=== PATIENT | female | born 1980 | race Caucasian/White ===

== ENCOUNTER 2019-01-24 05:20 | Day surgery (SDC) | payer OTHER ==
[~2019-01-24] VITALS: Ht 154.9 cm; Wt 49.9 kg
[~2019-01-24 05:20] MED LIST: WELLBUTRIN SR150 MG PO; ZOLOFT100 MG PO
[2019-01-24 07:04] VITALS: BP 136/81
[2019-01-24 10:20] VITALS: BP 136/81
--- NOTE | 2019-01-24 14:07 | O ---
[address] [address] OPERATIVE REPORT Name: NICKO JOHNSON Room #: 150-2 [facility]#: [id number] Admission: 01/24/19 Attend Phys: Jw Nix MD Discharge: Date of : 84 Report #: [id number] THIS REPORT FOR: //name// CC: JONY Nix Physician staff DATE OF SERVICE: 01/24/2019 SERVICE: Orthopedics. FACILITY: [facility]. SURGEON: Jw Nix M.D. WELDER HELPER: Ale Alvarez NP. INDICATION FOR WELDER HELPER: Extremity positioning, suture, and arthroscope management and assistance with repair. PREOPERATIVE DIAGNOSES: 1. Right hip pain. 2. Right hip femoroacetabular impingement. 3. Right hip labral tear. POSTOPERATIVE DIAGNOSES: 1. Right hip pain. 2. Right hip femoroacetabular impingement. 3. Right hip labral tear. PROCEDURES: 1. Right hip arthroscopic labral repair. 2. Right hip arthroscopic Cam osteochondroplasty. 3. Right hip arthroscopic extraarticular subspine acetabuloplasty. COMPLICATIONS: None. DRAINS: None. SPECIMENS: None. ANESTHESIA: General with regional. FINDINGS: 1. Full thickness labral tear anteriorly, treated with [place] CinchLock suture anchor x 2. [address] [address] OPERATIVE REPORT Name: NICKO JOHNSON Room #: 150-2 [facility]#: [id number] Admission: 01/24/19 Attend Phys: Jw Nix MD Discharge: Date of : 84 Report #: [id number] 2. 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 HISTORY: The patient is a 38-year-old female with a history of persistent progressive right hip pain that have failed conservative measures for well over 6 months including rest, activity modification, physical therapy, oral medications and intraarticular injection. She had x-rays, which demonstrated an increased alpha angle, which was confirmed to be approximately 68 degrees at the maximum consistent with Cam impingement. Tonnis grade was 0 indicating no arthritis. She has a small crossover sign, which was attributable to a prominent anterior inferior iliac spine causing the crossover lesion, and therefore, the extraarticular hip impingement. The MRI showed a labral tear. Risks, benefits, alternatives, and indication of surgery discussed with her in detail after she failed conservative measures. Risks include but not limited to pain, bleeding, infection, injury to nerves or blood vessels, persistent pain despite surgical intervention, failure of any repairs, progression of any preexisting chondral injury, stiffness, need for further surgery as well as complications related to anesthesia such as stroke, heart attack, pulmonary complications, thromboembolic disease and . Despite these risks, she wished to proceed. PROCEDURE IN DETAIL: After right lower extremity was correctly identified in the preoperative holding area as the operative extremity, the patient was taken to the operating room where general anesthesia was induced. She underwent placement of single shot regional nerve block. She was padded appropriately. Prophylactic antibiotics were administered at appropriate time. Right hip was assessed under fluoroscopy to map out the femoral head neck junction where the extent of the Cam deformity was visualized. This extended from the 15 degree position to about the 60 degree position on the femoral neck and had a maximal alpha angle of 68 degrees. Right hip was then prepped and draped in standard sterile fashion. Timeout procedure was performed. Traction was applied to right lower extremity. Total traction time was 33 minutes. Standard anterolateral viewing portal was established followed by mid anterior working portal. Medially, there was noted to be synovitis and erythema within the capsule. This is a risk factor for postoperative adhesions, so it will be our indication for continuous passive motion machine postoperatively. Transverse capsulotomy was performed. The capsule was reflected off the dorsal side of the labrum allowing access to the dorsal aspect of the labrum and the acetabular side of the hip. There was a full thickness labral tear at the 12 o'clock position with some granulation tissue which demonstrates an attempt at healing. The subspine region was then exposed and a bur was used to perform a subspine recession to address the extraarticular portion of her hip impingement. After this was completed, [place] CinchLock suture anchors were placed x 2 with cerclage sutures providing good compression of the labrum against the acetabular [address] [address] OPERATIVE REPORT Name: NICKO JOHNSON Room #: 150-2 [facility]#: [id number] Admission: 01/24/19 Attend Phys: Jw Nix MD Discharge: Date of : 84 Report #: [id number] rim and then the labrum was probed and found to be stable. Shaver was then used to debride the frayed tissue at the chondral labral junction. Overall, the cartilage was healthy, but there was a thin strip of articular cartilage right at the area where the labral tear was located and the impingement was occurring where there were some grade 2 damage and just a very small area of grade 3 damage on the order of couple of millimeters. After this was completed, the hip was let out of traction. The hip was flexed up. Attention was turned towards the peripheral compartment. A lucrecia was then used to perform a Cam osteoplasty in a typical fashion and then removed the instruments, brought C-arm in, assessed the Cam, identified some additional bone distally that needed resection as well. I placed instruments back in the hip, completed the Cam osteoplasty and lavaged the bony debris out of the hip. I removed the instruments again. Took final x-rays and was satisfied with the appearance of the Cam osteoplasty. Instruments were placed back into the hip and then the transverse capsulotomy was closed with a total of four #2 Vicryl sutures. Arthroscopic effusion was drained and the portal sites were closed with a deep followed by superficial and Monocryl stitch. Sterile dressing was applied. The patient was awakened from anesthesia and taken to recovery room in stable condition. No complications. All counts were recorded as correct. <ELECTRONICALLY SIGNED> By: Jw Nix MD 01/24/19 1407 [id number] [id number] Jw Nix MD /nt
== END 2019-01-24 11:10 | disposition home or self-care (01) ==
LOC: OR 05:20 → TBA 05:21 → OR 11:10
DX: S73.191A Other sprain of right hip, initial encounter (principal); M25.851 Other specified joint disorders, right hip; F32.9 Major depressive disorder, single episode, unspecified; F41.9 Anxiety disorder, unspecified; F17.210 Nicotine dependence, cigarettes, uncomplicated; Z90.49 Acquired absence of other specified parts of digestive tract; Z90.710 Acquired absence of both cervix and uterus; Z98.890 Other specified postprocedural states; Z79.899 Other long term (current) drug therapy; X58.XXXA Exposure to other specified factors, initial encounter; Y93.89 Activity, other specified; Y99.8 Other external cause status; Y92.89 Other specified places as the place of occurrence of the external cause
CPT/HCPCS: 50010; 50101; 50386; 51320; 51538; 52001; 52282; 52304; 52313; 55430; 56524; 56527; 57092; 57103; 62110; 62900; 65060; 70005